=== PATIENT | male | born 1945 | race Caucasian/White ===

== ENCOUNTER 2016-12-09 14:59 | Inpatient (IN) | payer OTHER ==
[~2016-12-09] VITALS: Ht 182.9 cm; Wt 89.8 kg
--- NOTE | 2016-12-09 15:19 | ED NEURO DEFICIT/STROKE ---
History of Present Illness General Chief Complaint: Palpitations Stated Complaint: PALPITATIONS Source: patient, family Exam Limitations: no limitations Vital Signs & Intake/Output Vital Signs & Intake/Output Vital Signs Date Time Temp Pulse Resp B/P Pulse O2 O2 Flow FiO2 Ox Delivery Rate 12/09 1638 98.6 117 18 130/84 95 Nasal 2.0L Cannula 12/09 1550 110 124/74 12/09 1531 187 142/84 12/09 1527 99 Room Air 12/09 1526 142 142/91 96 Nasal 2.0L Cannula 12/09 1507 97.1 179 18 151/99 96 Room Air Allergies Coded Allergies: No Known Allergies (12/09/16) Reconcile Medications No Known Home Medications Triage Note: 71 Y/O MALE SENT FROM DR LOZANO'S OFFICE FOR EVAL OF RAPID HEARTBEAT AND ? CVA. PER PT, HE WENT TO HIS EYE DOCTOR DUE TO INTERMITTENT L EYE VISUAL CHANGES, "IT CANT FOCUS" (SINCE THIS AM) - WAS SENT TO DR LOZANO AND THEN SENT TO ED. PT DENIES PAIN. DENIES FEELING HEART RACING THOUGH NOTED TO BE 140'S-180'S. EKG COMPLETED. PT TAKEN TO ROOM 9. DENIES C/P, DENIES SOB; DENIES HX OF SAME Triage Nurses Notes Reviewed? yes HPI: Patient states that last night he saw flashes on the left side of his vision in his left eye but they only happened once or twice NEG that think anything of it so he went to bed. This morning he woke up and thought everything was fine and he began driving. While driving he noticed that he could not see out of the left side of his left high. Patient states when he turned his head to the left he was able to see him the left side but he could not see in the left periphery out of the left eye. Patient went to see his eye doctor who dilated him and could not find any abnormalities except the visual field loss in the left periphery of the left eye. Patient has not seen a primary care physician in approximately 6 years so he was sent to Dr. Lozano. Upon presentation to her office his vision has started to return and she cannot find anything on neurological exam however she found him to be tachycardic with an irregular heartbeat. Patient was sent to the emergency department for evaluation. Patient denies any palpitations. There's no shortness of breath or dyspnea on exertion. There is no orthopnea. Patient states he slept on one pillow last night and slept normally. Patient denies any lightheadedness. There is no headache. Past History Travel History Traveled to [place] past 21 day No Medical History Any Pertinent Medical History? 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 No Review of Systems Review of Systems Constitutional: Reports: no symptoms. EENTM: Reports: see HPI, visual changes. Respiratory: Reports: no symptoms. Cardiovascular: Reports: no symptoms. GI: Reports: no symptoms. Genitourinary: Reports: no symptoms. Musculoskeletal: Reports: no symptoms. Skin: Reports: no symptoms. Neurological/Psychological: Reports: no symptoms. Hematologic/Endocrine: Reports: no symptoms. Immunologic/Allergic: Reports: no symptoms. All Other Systems: Reviewed and Negative Physical Exam Physical Exam General Appearance: well developed/nourished, alert, awake, anxious, mild distress Head: atraumatic, normal appearance Eyes: Bilateral: PERRL, EOMI. Ears, Nose, Throat: normal ENT inspection, moist mucous membrane, hearing grossly normal Neck: normal inspection, supple, full range of motion, NO BRUIT HEARD Respiratory: normal breath sounds, chest non-tender, no respiratory distress, lungs clear Cardiovascular: normal peripheral pulses, tachycardia, irregularly irregular Gastrointestinal: normal bowel sounds, soft, non-tender, no organomegaly Back: normal inspection, normal range of motion Extremities: normal range of motion Psychiatric: awake, alert, oriented x 3 Cranial Nerves: normal hearing, normal speech, PERRL Coordination/Gait: normal finger to nose, normal gait Motor/Sensory: no motor/sensory deficits, motor deficit Skin: intact, normal color, warm/dry Lymphatic: no anterior cervical ramone Core Measures CVA/TIA Diagnosis: Yes NIH Stroke Scale: Total 1 Date Last Known Well: 12/08/16 Time Last Known Well: 2099 Symptom Start Date: 12/08/16 Symptom Start Time: 2100 Reason tPA not ordered+ Medical Contraindication Severe Sepsis Present: No Septic Shock Present: No Bedside Dysphagia Screen Bedside Swallow Eval Done: Yes Result of Evaluation: Pass Progress Differential Diagnosis: stroke, vertebrobasilar insuff., NEW ONSET AFIB Plan of Care: Orders Procedure Date/time Status Heart Healthy Diet 12/10 B Active Patient Data 12/09 1717 Active Admit to inpatient 12/09 1712 Active Add-on Test (ER Only) 12/09 1547 Active THYROID STIMULATING HORMONE 12/09 1509 Active TROPONIN LEVEL 12/09 1509 Active PARTIAL THROMBOPLASTIN TIME 12/09 1509 Complete PROTHROMBIN TIME 12/09 1509 Complete COMPREHENSIVE METABOLIC PANEL 12/09 1509 Active CBC WITHOUT DIFFERENTIAL 12/09 1509 Complete 1 HOUR GLUCOSE TOLERANCE TEST 12/09 1509 Active EKG 12/09 1501 Active Current Medications Sig/Magalys Start time Last Medication Dose Stop Time Status Admin Aspirin 325 MG ONCE ONE 12/09 1730 UNVr (Aspirin) 12/09 1731 Diltiazem HCl 125 MG Q12H 12/09 1715 UNVr (Cardizem DRIP) Dextrose/Water 100 ML (D5W) Laboratory Tests 12/09/16 1553: Anion Gap 13, Estimated GFR > 60, BUN/Creatinine Ratio 18.2, Glucose 104 H, Glucose 1 Hour 104, Calcium 9.5, Total Bilirubin 0.7, AST 27, ALT 39, Alkaline Phosphatase 90, Troponin I 0.03, Total Protein 7.3, Albumin 4.0, Globulin 3.3, Albumin/Globulin Ratio 1.2, TSH Pending, PT 12.2, INR 1.16, APTT 32, CBC w Diff NO MAN DIFF REQ, RBC 5.39, MCV 92.2, MCH 30.4, RDW 14.7 H, MPV 7.8, Gran % 83.8 H, Lymphocytes % 13.1 L, Monocytes % 2.8, Eosinophils % 0.2, Basophils % 0.1, Absolute Granulocytes 10.5 H, Absolute Lymphocytes 1.6, Absolute Monocytes 0.3, Absolute Eosinophils 0, Absolute Basophils 0, PUBS MCHC 33.0 Diagnostic Imaging: Viewed by Me: Radiology Read, CT Scan. Discussed w/RAD: Radiology Read, CT Scan. CXR Impression: PATIENT: SUSAN RICH PRESENT AGE: 71 PATIENT ACCOUNT NO: [id number] : 45 LOCATION: [facility] ORDERING PHYSICIAN: TABITHA BEAULIEU MD SERVICE DATE: 12/09/16 EXAM TYPE: RAD - XRY- PORTABLE CHEST XRAY EXAMINATION: XR PORTABLE CHEST CLINICAL INFORMATION: Chest pain COMPARISON: None TECHNIQUE: Portable AP view of the chest was obtained. FINDINGS: Lungs are symmetrically expanded and clear. Cardiac silhouette is top normal in size. No cephalization of pulmonary venous flow, interstitial edema, focal consolidation or pleural effusion. Aortic arch is slightly uncoiled. Bones subjectively appear diffusely osteopenic. 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 IMPRESSION: No acute cardiopulmonary pathology. DICTATED BY: LORI FERRARI MD DATE/TIME DICTATED:12/09/161554 REGISTERED PHLEBOTOMIST PART TIME:STEFFANY DATE/TIME TRANSCRIBED:12/09/161554 CONFIDENTIAL, DO NOT COPY WITHOUT APPROPRIATE AUTHORIZATION. <Electronically signed in Other Vendor System> SIGNED BY: LORI FERRARI MD 12/09/16 1600 Initial ED EKG: AFIB (WITH RVR AND RATE RELATED DUFF), AFIB WITH RVR AND RATE RELATED ST CHANGES, NO OLD TO COMPARE Prior EKG: changed (NO OLD TO COMPARE) Rhythm Strip: atrial fibrillation Comments: D/W DR. TILLMAN, HE WILL SEE PATIENT IN CONSULT ONCE ADMITTED. Discussed with Dr. Sebastian, hold off on anticoagulation for now. Okay to give aspirin. Departure Departure Disposition: STILL A PATIENT Condition: Stable Clinical Impression Primary Impression: CVA (cerebral vascular accident) Secondary Impressions: New onset a-fib Departure Forms: Customer Survey General Discharge Information Prescriptions: Current Visit Scripts No Known Home Medications Admission Note Spoke With: HALEY PARNELL,CECILIA Documentation of Exam: Documentation of any treatments & extenuating circumstances including Concerns Regarding Discharge (functional status, medication knowledge or non-compliance, living conditions, etc.) that warrant an admission rather than observation: [ Telemetry monitoring, Kalie chen, cardiology consultation, neurology consultation] Critical Care Note Critical Care Note Critical Care Time: mins: (45 MIN)
--- NOTE | 2016-12-09 16:00 | RADIOLOGY REPORT ---
EXAMINATION: XR PORTABLE CHEST CLINICAL INFORMATION: Chest pain COMPARISON: None TECHNIQUE: Portable AP view of the chest was obtained. FINDINGS: Lungs are symmetrically expanded and clear. Cardiac silhouette is top normal in size. No cephalization of pulmonary venous flow, interstitial edema, focal consolidation or pleural effusion. Aortic arch is slightly uncoiled. Bones subjectively appear diffusely osteopenic. 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 IMPRESSION: No acute cardiopulmonary pathology.
[2016-12-09 16:18] LABS: ABSOLUTE BASOPHIL COUNT 0 /CUMM (0.0-0.2); ABSOLUTE EOSINOPHIL COUNT 0 /CUMM (0.0-0.7); ABSOLUTE GRANULOCYTE CT 10.5 /CUMM (1.4-6.5); ABSOLUTE LYMPH COUNT 1.6 /CUMM (1.2-3.4); ABSOLUTE MONOCYTE COUNT 0.3 /CUMM (0.10-0.60); BASOPHIL % 0.1 % (0.0-2.0); EOSINOPHIL % 0.2 % (0-5); GRANULOCYTE % 83.8 % (42.2-75.2); HEMATOCRIT 49.7 % (42-52); MEAN CORPUSCULAR HGB 30.4 PG (27.0-31.0); MEAN CORPUSCULAR VOLUME 92.2 FL (80.0-94.0); MEAN PLATELET VOLUME 7.8 FL (7.4-10.4); PLATELET COUNT 298 /CUMM (130-400); RBC DISTRIBUTION WIDTH 14.7 % (11.5-14.5); RED BLOOD CELL CT 5.39 /CUMM (4.70-6.10); WHITE BLOOD CELL COUNT 12.5 /CUMM (4.8-10.8)
[2016-12-09 16:21] LABS: PT 12.2 SEC (9.4-12.5); PTT 32 SEC (25-37)
--- NOTE | 2016-12-09 17:03 | CT SCAN REPORT ---
EXAMINATION: CT HEAD WITHOUT CONTRAST CLINICAL INFORMATION: Left-sided visual field defect. COMPARISON: None. TECHNIQUE: Contiguous axial imaging was performed from the skull base to vertex without intravenous administration of contrast. DLP: 600 mGy-cm FINDINGS: Noncontrast CT imaging of the brain is notable for a focal region of hypoattenuation within the right paramedian occipital lobe, suspicious for acute right PRINCIPAL SYSTEMS ARCHITECT territory infarction. Of note, there is mild effacement of the posterior horn of the right lateral ventricle, likely secondary to underlying edema within this region. The remaining ventricles are normal in size. A focal region of hypoattenuation is also visualized within the deep cortical white matter of the left parietal lobe. This latter region of hypoattenuation is nonspecific but could reflect age-indeterminate small vessel ischemia. There is no acute intracranial hemorrhage, mass or mass effect or abnormal extra-axial fluid collections. The density within the dural venous sinuses is within normal limits. The basilar cisterns are patent. No acute calvarial abnormality is identified. There is minimal opacification of a left anterior ethmoid air cell. The remaining imaged paranasal sinuses and mastoid air cells are well aerated. IMPRESSION: A focal region of hypoattenuation within the right paramedian occipital lobe, suspicious for acute right PRINCIPAL SYSTEMS ARCHITECT territory infarction. Mild effacement of the posterior horn of the right lateral ventricle, likely secondary to underlying cerebral edema. The remaining ventricles are normal in size, without hydrocephalus. This critical result was discussed with Dr. Chuckie Mancini at 4:53 PM on 12/09/2016 and it was ascertained that the content and urgency of the report was understood at the time of direct communication.
--- NOTE | 2016-12-09 17:49 | History & Physical ---
See Addendum ALEX CHIRINOS 12/09/16 1748: General Information and HPI MD Statement: I have seen and personally examined SUSAN RICH and documented this H&P. The patient is a 71 year old M who presented with a patient stated chief complaint of palpitations Source of Information: patient, family, old records Exam Limitations: no limitations History of Present Illness: 71 year old gentleman with no past significant medical history, no follow up with a PCP since 7-8 years comes to ED for evaluation of visual disturbances. Reports he has some intermittent "flashes" last night. This morning around 9am while he was driving he experienced loss of left lateral aspect of his visual field in left eye. This lasted for a few seconds and he continued to drive home. He visited his eye doctor who told him to go to a doctor as he might have had a TIA based on his eye findings. Denied chest discomfort, palpitations, shortness of breath, orthopnea, paroxysmal nocturnal dyspnea, dry cough, lower extremity edema, syncope, near syncope, lightheadedness, dizziness, double vision, headaches, tingling, numbness, weakness. Allergies/Medications Allergies: Coded Allergies: No Known Allergies (12/09/16) Home Med list Aspirin (Ecotrin*) 81 MG TABLET. 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 Home Who Do You Live With? spouse ETOH Use: occasional use (RARELY AND NOT RECENTLY) Illicit Drug Use: denies illicit drug use Functional Ability ADLs Independent: dressing, eating, toileting, bathing. Ambulation: independent IADLs Independent: shopping, housework, finances, food prep, telephone, transportation , medication admin. Review of Systems Review of Systems Constitutional: Denies: chills, diaphoresis, fever, malaise, weakness, unexplained weight loss. Cardiovascular: Denies: chest pain, edema, orthopena, palpitations, peripheral edema, syncope. Respiratory: Denies: cough, hemoptysis, orthopnea, short of breath, sputum production, stridor, wheezing. GI: Denies: abdominal pain, bloating, constipation, diarrhea, distention, bowel incontinence, melena, nausea, bloody stool, changes in stool, vomiting, steatorrhea. Genitourinary: Denies: discharge, dysuria, frequency, hematuria, hesitation, nocturia, pain, urgency. Exam & Diagnostic Data Last 24 Hrs of Vital Signs/I&O Vital Signs Date Time Temp Pulse Resp B/P Pulse O2 O2 Flow FiO2 Ox Delivery Rate 12/09 1904 108 12 134/84 100 Nasal 2.0L Cannula 12/09 1743 97.1 113 20 134/78 96 Nasal 2.0L Cannula 12/09 1736 124 121/74 12/09 1638 98.6 117 18 130/84 95 Nasal 2.0L Cannula 12/09 1550 110 124/74 12/09 1531 187 142/84 12/09 1527 99 Room Air 12/09 1526 142 142/91 96 Nasal 2.0L Cannula 12/09 1507 97.1 179 18 151/99 96 Room Air Intake & Output 12/09 1600 12/09 0800 12/09 0000 Intake Total 1000 Output Total Balance 1000 Intake, IV 1000 Patient 185 lb Weight Physical Exam General Appearance Alert, Oriented X3, Cooperative, No Acute Distress HEENT Atraumatic, PERRLA (dilated), EOMI, Mucous Membr. moist/pink Neck Supple, No JVD, +2 Carotid Pulse wo Bruit Lymphatic Cervical nl Cardiovascular Normal S1, Normal S2, irregularly regular Lungs Clear to Auscultation, Normal Air Movement Abdomen Normal Bowel Sounds, Soft, No Tenderness Neurological Normal Speech, Normal Tone, Sensation Intact, Cranial Nerves 3-12 NL, impaired confrontation in left lower quadrant Extremities No Edema Diagnostic Data EKG Results Atrial fibrillation, heart rate 186, Q waves in lead 2 and 3 CXR Results SERVICE DATE: 12/09/16-1517 EXAM TYPE: RAD - XRY-PORTABLE CHEST XRAY EXAMINATION: XR PORTABLE CHEST FINDINGS: Lungs are symmetrically expanded and clear. Cardiac silhouette is top normal in size. No cephalization of pulmonary venous flow, interstitial edema, focal consolidation or pleural effusion. Aortic arch is slightly uncoiled. Bones subjectively appear diffusely osteopenic. 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 IMPRESSION: No acute cardiopulmonary pathology. SERVICE DATE: 12/09/16 EXAM TYPE: CAT - CT HEAD WO IV CONTRAST FINDINGS: Noncontrast CT imaging of the brain is notable for a focal region of hypoattenuation within the right paramedian occipital lobe, suspicious for acute right TIMBER DEADENER territory infarction. Of note, there is mild effacement of the posterior horn of the right lateral ventricle, likely secondary to underlying edema within this region. The remaining ventricles are normal in size. A focal region of hypoattenuation is also visualized within the deep cortical white matter of the left parietal lobe. This latter region of hypoattenuation is nonspecific but could reflect age-indeterminate small vessel ischemia. There is no acute intracranial hemorrhage, mass or mass effect or abnormal extra-axial fluid collections. The density within the dural venous sinuses is within normal limits. The basilar cisterns are patent. No acute calvarial abnormality is identified. There is minimal opacification of a left anterior ethmoid air cell. The remaining imaged paranasal sinuses and mastoid air cells are well aerated. IMPRESSION: A focal region of hypoattenuation within the right paramedian occipital lobe, suspicious for acute right TIMBER DEADENER territory infarction. Mild effacement of the posterior horn of the right lateral ventricle, likely secondary to underlying cerebral edema. The remaining ventricles are normal in size, without hydrocephalus. Assessment/Plan Assessment: 71 year old gentleman with no past significant medical history, no follow up with a PCP since 7-8 years comes to ED for evaluation of visual disturbances. Found to be in rapid afib in ED, CT head showed acute right TIMBER DEADENER territory infarction. Mild effacement of the posterior horn of the right lateral ventricle, likely secondary to underlying cerebral edema. Will admit to tele floor for continuous cardiac monitoring: problem list: new onset afib TIMBER DEADENER infarct plan: based on his neurological finding of left lower quadranopsia, most likely TIMBER DEADENER infarct involving lateral geniculate nucleus secondary to underlying afib. on IV cardiazem, will start aspirin and plavix f/up echo, carotid doppler will hold of Anticoagulation for at 24 hrs in case of hemorrhagic transformation despite Has-bled score of 3, those with afib are at higher risk for recurrent TIMBER DEADENER stroke. cardiololgy and neurology aware of pt. passed bedside swallow eval dvt prophylaxis with sc hep full code. As Ranked By This Provider Problem List: 1. CVA (cerebral vascular accident) 2. New onset a-fib Core Measures/Miscellaneous Acute Coronary Syndrome ACS Diagnosis: No Cerebrovascular Accident CVA/TIA Diagnosis: Yes NIH Stroke Scale: Total 1 Date Last Known Well: 12/08/16 Time Last Known Well: 2099 Neurological S/S of CVA: Acute Confusion (peripheral vision defect) Symptom Start Date: 12/08/16 Symptom Start Time: 2099 Reason tPA not ordered Medical Contraindication Bedside Swallow Eval Done: Yes Result of Evaluation: Pass Days in Hospital: na Antithrombotic: Yes AFIB: Atrial Fibrillation Aflutter: No Anticoagulant: No No Anticoag d/t: Medical Contraindication Evidence of Atherosclerosis: No LDL Assessed Within 24 Hours: Yes Currently on Statin: Yes Rehab Needs Assessed: Medical Eval for Rehab PT Consult Ordered: Yes Congestive Heart Failure CHF Diagnosis: No Venous Thromboembolism VTE Risk Factors: Age > 40 VTE Prophylaxis Ordered Inpt: Pharm- Heparin No Mech VTE prophylaxis d/t: No contraindications No VTE Pharm Prophylaxis d/t: No contraindications VTE Diagnosis: No VTE Type: NONE VTE Confirmed by (Test): NONE Severe Sepsis Severe Sepsis Present: No Septic Shock Septic Shock Present: No Miscellaneous Documentation Attending Case Discussed With: HALEY PARNELL,CECILIA Primary Care Physician: SHI LOZANO MD Patient sees these Specialists none Level of Patient Care: Telemetry DANDRE ELLER 12/09/16 1800: Resident Review Statement Resident Statement: examined this patient, discussed with employee communications intern, agreed with employee communications intern, discussed with family, reviewed EMR data (avail), reviewed images Other Findings: This is a 71-year-old gentleman with remote history of tobacco dependence was sent to the ED from Dr. Lozano's office for further evaluation of his visual field defect and atrial fibrillation with RVR. Patient has not seen a physician or done any medical workup for many years. He takes baby aspirin at home. He denies any history of cardiac disease, stroke, cancer, arrhythmia, cardiomyopathy or any medical problems. 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 He continued to drive and saw his deer farmer who referred him to Dr. Lozano and then he was sent to the ED from her office. Patient denies experiencing any loss of consciousness, near syncope, slurred speech, facial droop, shortness of breath, palpitation, chest pain, abdominal pain, urinary symptoms. On admission, he is tachycardic, vital signs otherwise stable, adequate saturation on 2 L nasal cannula oxygen. Physical exam: AAO 3, NAD. HEENT: NCAT, EOMI, PERRLA, visual field limited in left eye. Neck: Supple, no JVD, no carotid bruit. Lungs: CTA BL. CV: S1-S2 auscultated, no murmur, tachycardic. Abdomen: Normal bowel sounds, Soft, nondistended, nontender. Extremities, no edema, pulses normal and symmetrical. The patient passed bedside swallow evaluation test. Available labs and imaging/diagnostic data were reviewed. Head CT showed acute right TIMBER DEADENER territory infarction and mild effacement of the posterior horn of the right lateral ventricle, likely secondary to underlying cerebral edema. EKG showed A. fib, rate 179, QTC 484. Problem list #1 Acute CVA #2 A. fib with RVR Plan * Telemetry * Vitals per protocol * Rule out ACS with trending troponin and EKGs * Will check TSH, free T4, hemoglobin A1c, lipid profile * Will start the patient on statin, Plavix * Will maintain the patient on aspirin * Doppler carotid ultrasound, echocardiogram * Consider head MRI * Cardiology and neurology consulted will follow recommendations. * Formal swallow evaluation, PT/OT * Would not initiate systemic anticoagulation for at least 24 hours * DVT prophylaxis at all times * Cardiac diet * Patient is full code
--- NOTE | 2016-12-09 18:13 | Admission Certification ---
Admission Certification Certification Statement - As attending physician, I certify that at the time of - admission, based on clinical presentation, severity of - symptoms, need for further diagnostic testing and - therapeutic interventions, and risk of adverse outcomes - without in-hospital treatment, in my clinical assessment, - this patient requires an acute hospital stay for a minimum - of two nights or longer. I have also considered psychsocial - factors such as support system, advanced age, financial - issues, cognitive issues, and failed out-patient treatments, - past re-admission history, safety of patient, and lack of - compliance as applicable. Specific rationale supporting this admission is: New stroke and atrial fibrillation with rapid ventricle response rate
--- NOTE | 2016-12-09 18:22 | PN- Att Addend ---
Attending Addendum Attending Brief Note Patient seen and examined. Plan of care discussed with the medical team and the patient. Available lab work and radiology test reports were reviewed. Elderly made previous a healthy who presented with one-day history of flashing light in the left eye with visual field defect confirmed with the stack yield engineer. He noted that he was not able to see part of his car while driving. Patient was noted in ER to have A. fib with rapid ventricle response rate. Since his arrival he states his visual symptoms have improved. He denies any arm or leg weakness. Vital Signs Date Time Temp Pulse Resp B/P Pulse O2 O2 Flow FiO2 Ox Delivery Rate 12/09 1743 97.1 113 20 134/78 96 Nasal 2.0L Cannula 12/09 1736 124 121/74 12/09 1638 98.6 117 18 130/84 95 Nasal 2.0L Cannula 12/09 1550 110 124/74 12/09 1531 187 142/84 12/09 1527 99 Room Air 12/09 1526 142 142/91 96 Nasal 2.0L Cannula 12/09 1507 97.1 179 18 151/99 96 Room Air Intake & Output 12/09 1600 12/09 0800 12/09 0000 Intake Total 1000 Output Total Balance 1000 Intake, IV 1000 Patient 185 lb Weight Exam: General: Patient awake alert oriented without any distress CVS: S1 plus S2 without any murmur or gallops Chest: Few scattered crepitation without any wheeze. There is no respiratory distress. Abdomen: Soft nontender, bowel sound present, no guarding or rebound ADOLESCENT SPECIALIST: Awake alert oriented without any focal neuro deficit and follows command appropriately ; no double vision Extremities: No edema; no clubbing or cyanosis noted Laboratory Tests 12/09 12/09 12/09 1553 1509 1509 Chemistry Sodium (137 - 145 mmol/L) 141 Potassium (3.5 - 5.1 mmol/L) 4.9 Chloride (98 - 107 mmol/L) 105 Carbon Dioxide (22 - 30 mmol/L) 24 Anion Gap (5 - 16) 13 BUN (9 - 20 mg/dL) 20 Creatinine (0.7 - 1.2 mg/dL) 1.1 Estimated GFR (>60 ml/min) > 60 BUN/Creatinine Ratio (7 - 25 %) 18.2 Glucose (65 - 99 mg/dL) 104 H Fasting Glucose Cancelled Glucose 1/2 Hour Cancelled Calcium (8.4 - 10.2 mg/dL) 9.5 Magnesium (1.6 - 2.3 mg/dL) Pending Total Bilirubin (0.2 - 1.3 mg/dL) 0.7 AST (17 - 59 U/L) 27 ALT (21 - 72 U/L) 39 Alkaline Phosphatase (< 127 U/L) 90 Troponin I (<0.11 ng/ml) 0.03 Total Protein (6.3 - 8.2 g/dL) 7.3 Albumin (3.5 - 5.0 g/dL) 4.0 Globulin (1.9 - 4.2 gm/dL) 3.3 Albumin/Globulin Ratio (1.1 - 2.2 %) 1.2 TSH (0.270 - 4.200 uIU/mL) 0.461 Free T4 (0.78 - 2.44 ng/dL) Pending Coagulation PT (9.4 - 12.5 SEC) 12.2 INR (0.90 - 1.17) 1.16 APTT (25 - 37 SEC) 32 Hematology CBC w Diff NO MAN DIFF REQ WBC (4.8 - 10.8 /CUMM) 12.5 H RBC (4.70 - 6.10 /CUMM) 5.39 Hgb (14.0 - 18.0 G/DL) 16.4 Hct (42 - 52 %) 49.7 MCV (80.0 - 94.0 FL) 92.2 MCH (27.0 - 31.0 PG) 30.4 RDW (11.5 - 14.5 %) 14.7 H Plt Count (130 - 400 /CUMM) 298 MPV (7.4 - 10.4 FL) 7.8 Gran % (42.2 - 75.2 %) 83.8 H Lymphocytes % (20.5 - 51.1 %) 13.1 L Monocytes % (1.7 - 9.3 %) 2.8 Eosinophils % (0 - 5 %) 0.2 Basophils % (0.0 - 2.0 %) 0.1 Absolute Granulocytes (1.4 - 6.5 /CUMM) 10.5 H Absolute Lymphocytes (1.2 - 3.4 /CUMM) 1.6 Absolute Monocytes (0.10 - 0.60 /CUMM) 0.3 Absolute Eosinophils (0.0 - 0.7 /CUMM) 0 Absolute Basophils (0.0 - 0.2 /CUMM) 0 PUBS MCHC (33.0 - 37.0 G/DL) 33.0 CT HEAD A focal region of hypoattenuation within the right paramedian occipital lobe, suspicious for acute right TECHNICAL TRAINING MANAGER territory infarction. Mild effacement of the posterior horn of the right lateral ventricle, likely secondary to underlying cerebral edema. The remaining ventricles are normal in size, without hydrocephalus. CXR No acute cardiopulmonary pathology. Assessment * Occipital stroke with visual symptoms * New onset rapid A. fib * Elevated WBC count of unclear etiology Plan * Patient is being started on Cardizem. Follow TSH level. * His CT of the head have shown right-sided occipital infarct. As per neurology we should wait 24 hours before we start heparin. * Patient home takes aspirin therefore will begin with the Plavix and aspirin combination. * We will obtain neurology consult. * wait at least 24 hrs before starting heparin * Patient seen by Dr. Villela. * We'll admit to telemetry. * start statins. * check carotid doppler * check echocardiogram * check trops times 3 Care plan discussed with patient and his .
[2016-12-09] MEDS ORDERED: ASPIRIN EC81 M1 PO (18:28)
--- NOTE | 2016-12-09 18:28 | Cons- Cardiology ---
General Information and HPI Consulting Request Date of Consult: 12/09/16 Requested By: Reid Mcgee Haq Reason for Consult: Neurologic deficit and "new onset" atrial fibrillation. Source of Information: patient, family Exam Limitations: no limitations History of Present Illness: Mr. Rome Ortega is a 71-year-old male with a long-standing history of remote tobacco use who has not seen a physician in many years and who presented with a left visual field deficit and was found to be in atrial fibrillation with a rapid ventricular response. Mr. Ortega states that he noticed some visual "flashes" last night prior to going to bed for a camera flash might be going off and actually looked out of his window to see if there was any reason for the visual sensation he was experiencing. There was none. This morning while on his way to get a cup of coffee, he noticed transient, fleeting episodes of visual loss to the lateral aspect of his left eye. He did not think that his right eye was affected. He denied any recent associated chest discomfort, palpitations, shortness of breath, orthopnea, paroxysmal nocturnal dyspnea, dry cough, lower extremity edema, syncope, near syncope, lightheadedness, dizziness, or claudication. He also denied any recent periods of immobilization, such as long automobile drives, flights, etc. He denies any history of coronary, valvular, dysrhythmic/conduction disease, or cardiomyopathy. He also denies any history of hypertension, dyslipidemia, diabetes mellitus, coronary artery disease or family history of coronary artery disease or atrial fibrillation, except for brother had atrial fibrillation post CT surgery for a bioprosthetic valve replacement in older age. He also denies any history of thyroid thyroid disease, pulmonary disease, obstructive sleep apnea, etc. Allergies/Medications Allergies: Coded Allergies: No Known Allergies (12/09/16) Home Med List: Aspirin (Ecotrin*) 81 MG TABLET. 1 TAB PO DAILY Heart (Reported) Review of Systems Review of Systems: A 14 point system review was obtained and was noncontributory, other than for the fact the patient wears glasses. Past History Travel History Traveled to [place] past 21 day No Medical History Neurological: NONE EENT: NONE Cardiovascular: NONE Respiratory: NONE Gastrointestinal: NONE Hepatic: NONE Renal: nephrolithiasis Musculoskeletal: NONE Psychiatric: NONE Endocrine: NONE Blood Disorders: NONE Cancer(s): NONE FAMILY PRESERVATION OFFICER/Reproductive: NONE Surgical History Surgical History: non-contributory Psychosocial History ETOH Use: occasional use (RARELY AND NOT RECENTLY) Illicit Drug Use: denies illicit drug use Exam & Diagnostic Data Vital Signs and I&O Vital Signs Date Time Temp Pulse Resp B/P Pulse O2 O2 Flow FiO2 Ox Delivery Rate 12/09 1743 97.1 113 20 134/78 96 Nasal 2.0L Cannula 12/09 1736 124 121/74 12/09 1638 98.6 117 18 130/84 95 Nasal 2.0L Cannula 12/09 1550 110 124/74 12/09 1531 187 142/84 12/09 1527 99 Room Air 12/09 1526 142 142/91 96 Nasal 2.0L Cannula 12/09 1507 97.1 179 18 151/99 96 Room Air Intake & Output 12/09 1600 12/09 0800 12/09 0000 12/08 1600 12/08 0800 12/08 0000 Intake Total 1000 Output Total Balance 1000 Intake, IV 1000 Patient 185 lb Weight Physical Exam: Well-developed, well-nourished elderly male in no acute distress with nasal oxygen in place. Vital signs: See above. HEENT: Normocephalic, atraumatic, EOMI, moist mucous membranes. Neck: No JVD, no bruits. Lungs: Clear to auscultation bilaterally. Heart: S1, S2 with no murmur, gallop, or rub appreciated. PMI fifth ICS at MCL. Abdomen: Soft, nontender, positive bowel sounds. Extremities: No edema. Pulses: Symmetrical and intact. Labs/Finesse Results: Laboratory Tests 12/09 12/09 12/09 1553 1553 1509 Chemistry Sodium (137 - 145 mmol/L) 141 Potassium (3.5 - 5.1 mmol/L) 4.9 Chloride (98 - 107 mmol/L) 105 Carbon Dioxide (22 - 30 mmol/L) 24 Anion Gap (5 - 16) 13 BUN (9 - 20 mg/dL) 20 Creatinine (0.7 - 1.2 mg/dL) 1.1 Estimated GFR (>60 ml/min) > 60 BUN/Creatinine Ratio (7 - 25 %) 18.2 Glucose (65 - 99 mg/dL) 104 H Glucose 1/2 Hour Cancelled Hemoglobin A1c Pending Calcium (8.4 - 10.2 mg/dL) 9.5 Magnesium (1.6 - 2.3 mg/dL) Pending Total Bilirubin (0.2 - 1.3 mg/dL) 0.7 AST (17 - 59 U/L) 27 ALT (21 - 72 U/L) 39 Alkaline Phosphatase (< 127 U/L) 90 Troponin I (<0.11 ng/ml) 0.03 Total Protein (6.3 - 8.2 g/dL) 7.3 Albumin (3.5 - 5.0 g/dL) 4.0 Globulin (1.9 - 4.2 gm/dL) 3.3 Albumin/Globulin Ratio (1.1 - 2.2 %) 1.2 Triglycerides (<150 mg/dL) Pending Cholesterol (< 200 MG/DL) Pending LDL Cholesterol, Calc (65 - 129 mg/dL) Pending HDL Cholesterol (40 - 60 mg/dL) Pending Cholesterol/HDL Ratio (0.00 - 4.88 %) Pending TSH (0.270 - 4.200 uIU/mL) 0.461 Free T4 (0.78 - 2.44 ng/dL) Pending Coagulation PT (9.4 - 12.5 SEC) 12.2 INR (0.90 - 1.17) 1.16 APTT (25 - 37 SEC) 32 Hematology CBC w Diff NO MAN DIFF REQ WBC (4.8 - 10.8 /CUMM) 12.5 H RBC (4.70 - 6.10 /CUMM) 5.39 Hgb (14.0 - 18.0 G/DL) 16.4 Hct (42 - 52 %) 49.7 MCV (80.0 - 94.0 FL) 92.2 MCH (27.0 - 31.0 PG) 30.4 RDW (11.5 - 14.5 %) 14.7 H Plt Count (130 - 400 /CUMM) 298 MPV (7.4 - 10.4 FL) 7.8 Gran % (42.2 - 75.2 %) 83.8 H Lymphocytes % (20.5 - 51.1 %) 13.1 L Monocytes % (1.7 - 9.3 %) 2.8 Eosinophils % (0 - 5 %) 0.2 Basophils % (0.0 - 2.0 %) 0.1 Absolute Granulocytes (1.4 - 6.5 /CUMM) 10.5 H Absolute Lymphocytes (1.2 - 3.4 /CUMM) 1.6 Absolute Monocytes (0.10 - 0.60 /CUMM) 0.3 Absolute Eosinophils (0.0 - 0.7 /CUMM) 0 Absolute Basophils (0.0 - 0.2 /CUMM) 0 PUBS MCHC (33.0 - 37.0 G/DL) 33.0 12/09 1509 Chemistry Fasting Glucose Cancelled Diagnostic Data EKG Results (12/09/2016) atrial fibrillation with a rapid ventricular response, 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 CXR Results (12/09/2016) no acute cardiopulmonary process. Other Results Head CT (12/09/2016) A focal region of hypoattenuation within the right paramedian occipital lobe, suspicious for acute right BROADCAST ENGINEER territory infarction. Mild effacement of the posterior horn of the right lateral ventricle, likely secondary to underlying cerebral edema. The remaining ventricles are normal in size, without hydrocephalus. Assessment/Plan Assessment/Plan Mr. Ortega is an elderly male who has not seen a physician in many years and who presented with a left visual field defect and was discovered to be in atrial fibrillation with a rapid ventricular response. He is in the process of receiving his third bolus of IV diltiazem 10 mg and will be placed on a diltiazem drip. He has a [id number] score of at least 3 with an unadjusted stroke rate of 3.2% per year (age 71 years and stroke/TIA), but also has evidence of a probable old inferior wall and possible old anterior wall myocardial infarction on his electrocardiogram which could increase his score to 4 and an unadjusted stroke rate of 4.8% per year, and therefore should be on long-term anticoagulation, especially since he is not aware of the fact that he is in atrial fibrillation. However, there is the potential for hemorrhagic transformation of his ischemic stroke if he were placed on anticoagulation at this time, so this will be held until neurology deems it appropriate to begin anticoagulation. Recommendations: * Telemetry admission, follow-up troponins, follow-up electrocardiograms. * Start IV diltiazem and when the ventricular response to his atrial fibrillation is well-controlled switch to oral diltiazem by the formula: Oral daily dosage in mg/day approximately equals [IV rate (mg/hr) x3 +3] x 10 i.e., an IV rate of 3 mg/hr would equal an oral daily dosage of 120 mg. * Schedule for an echocardiogram to assess his left ventricular function, valvular function, atrial size, estimated PA systolic pressure, etc. * Anticipate that he will be started on a full anticoagulation and would recommend one of the newer factor Xa inhibitors such as Eliquis (apixaban) or Xarelto (rivaroxaban). * Schedule for carotid ultrasound. * Consider brain MRI. * Check free T4, TSH, glycosylated hemoglobin A1c, magnesium level, lipid panel, etc. * DVT prophylaxis. Further recommendations will follow, Thank you. Consult Acknowledgment - Thank you for your consult request.
[2016-12-09 20:42] VITALS: BP 138/82
--- NOTE | 2016-12-09 21:10 | ULTRASOUND REPORT ---
EXAMINATION: US DUPLEX CAROTID AND VERTEBRAL CLINICAL INFORMATION: Additional changes. Right occipital lobe infarct on recent head CT. COMPARISON: None. TECHNIQUE: Real-time ultrasound and Doppler techniques (integrating B-mode 2D vascular images, Doppler spectral analysis and color flow Doppler imaging) were utilized to interrogate the extracranial carotid and vertebral arteries bilaterally. The degree of stenosis determined by criteria similar to NASCET. FINDINGS: RIGHT CAROTID SYSTEM: There is minimal echogenic plaque within the right common carotid artery, notably in the region of the carotid bulb. Peak systolic velocities and end diastolic velocities of the right vessels are as follows: Distal CCA: PSV 65 cm/s, EDV 10 cm/s Proximal ICA: PSV 79 cm/s, EDV 24 cm/s Mid ICA: 84 cm/s, EDV 28 cm/s Distal ICA: 95 cm/s, EDV 30 cm/s ECA: PSV 92 cm/s, EDV 19 cm/s Right vertebral artery: Antegrade flow is identified within the right vertebral artery. LEFT CAROTID SYSTEM: Minimal echogenic plaque within the left common carotid artery. Peak systolic velocities and end diastolic velocities of the left vessels are as follows: Distal CCA: PSV 79 cm/s, EDV 16 cm/s Proximal ICA: PSV 69 cm/s, EDV 17 cm/s Mid ICA: 99 cm/s, EDV 35 cm/s Distal ICA: 123 cm/s, EDV 35 cm/s ECA: PSV 120 cm/s, EDV 13 cm/s Left vertebral artery: Antegrade flow within the left vertebral artery. IMPRESSION: No hemodynamically significant stenosis of the bilateral internal carotid arteries. Any stenosis is less than 50%.
[2016-12-10 08:31] VITALS: BP 136/90
--- NOTE | 2016-12-10 09:16 | PN- Housestaff ---
See Addendum Subjective Follow-up For: GOODWILL REPRESENTATIVE infarct New onset A. fib Tele-Events Since Last Visit: Atrial fibrillation, 85 -100s, 3 beat V. tach Subjective: Seen and examined patient, offers no complaints feels well. States that his vision is actually improving. Denies any worsening weakness of his upper and lower extremities Review of Systems Constitutional: Denies: chills, diaphoresis, fever, malaise, weakness, unexplained weight loss. Cardiovascular: Denies: chest pain, edema, orthopena, palpitations, peripheral edema, syncope. Respiratory: Denies: cough, hemoptysis, orthopnea, short of breath, sputum production, stridor, wheezing. Objective Last 24 Hrs of Vital Signs/I&O Vital Signs Date Time Temp Pulse Resp B/P Pulse O2 O2 Flow FiO2 Ox Delivery Rate 12/10 0831 98.2 86 20 136/90 93 Room Air 12/09 2042 98.0 103 20 138/82 96 Room Air 12/09 1904 108 12 134/84 100 Nasal 2.0L Cannula 12/09 1743 97.1 113 20 134/78 96 Nasal 2.0L Cannula 12/09 1736 124 121/74 12/09 1638 98.6 117 18 130/84 95 Nasal 2.0L Cannula 12/09 1550 110 124/74 12/09 1531 187 142/84 12/09 1527 99 Room Air 12/09 1526 142 142/91 96 Nasal 2.0L Cannula 12/09 1507 97.1 179 18 151/99 96 Room Air Intake & Output 12/10 1600 12/10 0800 12/10 0000 Intake Total 270 250 Output Total Balance 270 250 Intake, IV 30 10 Intake, Oral 240 240 Number 1 Bowel Movements Patient 198 lb Weight Physical Exam General Appearance: Alert, Oriented X3, Cooperative, No Acute Distress HEENT: PERRLA, Mucous Membr. moist/pink Cardiovascular: Normal S1, Normal S2, irregularly irregular Lungs: Clear to Auscultation, Normal Air Movement Abdomen: Normal Bowel Sounds, Soft, No Tenderness Neurological: Normal Gait, Normal Speech, Strength at 5/5 X4 Ext, Normal Tone, Sensation Intact, Cranial Nerves 3-12 NL, confrontation test continues to have temporal visual field defect Extremities: No Edema Current Medications: Current Medications Sig/Magalys Start time Last Medication Dose Route Stop Time Status Admin Aspirin 325 MG ONCE ONE 12/09 1730 DC 12/09 PO 12/09 1731 1726 Aspirin 0 .STK-MED ONE 12/09 1717 DC PO Atorvastatin Calcium 80 MG 1700 12/10 1700 AC PO Atorvastatin Calcium 40 MG 17012/09 1830 DC 12/09 PO 2210 Clopidogrel Bisulfate 75 MG DAILY 12/09 1854 AC 12/09 PO 2210 Diltiazem HCl 0 .STK-MED ONE 12/09 1846 DC .ROUTE Diltiazem HCl 0 .STK-MED ONE 12/09 1717 DC .ROUTE Diltiazem HCl 10 MG ONCE ONE 12/09 1715 DC 12/09 IV PUSH 12/09 171 1736 Diltiazem HCl 125 MG Q12H 12/09 171 AC 12/09 Dextrose/Water 100 ML IV 1904 Diltiazem HCl 10 MG ONCE ONE 12/09 1545 DC 12/09 IV PUSH 12/09 1546 1550 Diltiazem HCl 10 MG ONCE ONE 12/09 1530 DC 12/09 IV PUSH 12/09 1531 1531 Diltiazem HCl 0 .STK-MED ONE 12/09 1517 DC .ROUTE Heparin Sodium 5,000 UNIT Q8 12/09 2199 CAN (Porcine) SC Heparin Sodium 5,000 UNIT Q8 12/09 2199 AC 12/10 (Porcine) SC 0445 Last 24 Hrs of Lab/Finesse Results Last 24 Hrs of Labs/Mics: Laboratory Tests 12/10/16 0630: Urine Opiates Screen < 100.00, Methadone Screen < 40, Barbiturate Screen < 60, Ur Phencyclidine Scrn < 6.00, Amphetamines Screen < 100, U Benzodiazepines Scrn < 85, Urine Cocaine Screen < 50, Urine Cannabis Screen < 5.00 12/10/16 0430: Potassium Pending, Magnesium Pending, Troponin I 0.03 12/09/16 2215: Troponin I 0.03 12/09/16 1553: Hemoglobin A1c Pending 12/09/16 1553: Anion Gap 13, Estimated GFR > 60, BUN/Creatinine Ratio 18.2, Glucose 104 H, Calcium 9.5, Magnesium 1.7, Total Bilirubin 0.7, AST 27, ALT 39, Alkaline Phosphatase 90, Troponin I 0.03, Total Protein 7.3, Albumin 4.0, Globulin 3.3, Albumin/Globulin Ratio 1.2, Triglycerides 91, Cholesterol 241 H, LDL Cholesterol, Calc 170 H, HDL Cholesterol 53, Cholesterol/HDL Ratio 5 H, TSH 0.461, Free T4 1.37, PT 12.2, INR 1.16, APTT 32, CBC w Diff NO MAN DIFF REQ, RBC 5.39, MCV 92.2, MCH 30.4, RDW 14.7 H, MPV 7.8, Gran % 83.8 H, Lymphocytes % 13.1 L, Monocytes % 2.8, Eosinophils % 0.2, Basophils % 0.1, Absolute Granulocytes 10.5 H, Absolute Lymphocytes 1.6, Absolute Monocytes 0.3, Absolute Eosinophils 0, Absolute Basophils 0, PUBS MCHC 33.0 12/09/16 1509: Glucose 1/2 Hour Cancelled 12/09/16 1509: Fasting Glucose Cancelled Assessment/Plan Assessment: 71 year old gentleman with no past significant medical history, no follow up with a PCP since 7-8 years comes to ED for evaluation of visual disturbances. Found to be in rapid afib in ED, CT head showed acute right GOODWILL REPRESENTATIVE territory infarction. Mild effacement of the posterior horn of the right lateral ventricle, likely secondary to underlying cerebral edema. Continues to have visual field defect. 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 plan: on IV cardiazem, heart rate between 70s-100s. will transition to PO cardiazem 30mg pq6 and titrate IV cardiazem off , continue aspirin and plavix, anticoagulation 7-10 days echo pending, carotid doppler shows no hemodynamically significant stenosis. cardiololgy and neurology aware of pt. heart healthy diet dvt prophylaxis with sc hep full code. Problem List: 1. New onset a-fib 2. CVA (cerebral vascular accident) Pain Ratin Pain Location: Not applicable Pain Goal: Pain 4 or less Pain Plan: BEP Tomorrow's Labs & Rationales: NONE REQUIRED
--- NOTE | 2016-12-10 12:49 | Cons- Neurology ---
General Information and HPI Consulting Request Date of Consult: 12/10/16 Requested By: REDD CEJA MD History of Present Illness: 71-year-old white male presented on the evening prior to admission with an unusual flash of light in his left visual field. He went to bed however upon arising the next morning realized that he had some difficulty seeing to his left. He went to see his eye doctor but was ultimately referred to the [facility] emergency room due to fear of stroke. He was found to be in atrial fibrillation with a rapid ventricular response. CAT scan of the brain showed a subacute right occipital ischemic infarction. The patient denied any associated headache. He had no known history of stroke. Allergies/Medications Allergies: Coded Allergies: No Known Allergies (12/09/16) Home Med List: Aspirin (Ecotrin*) 81 MG TABLET. 1 TAB PO DAILY Heart (Reported) Review of Systems Review of Systems: Notable for difficulty seeing to his left. There is no associated headache, fever, chills, rash, diplopia, dysarthria, dysphagia, chest pain, shortness of breath, vomiting, vertigo, gait ataxia, joint inflammation or history of abnormal bleeding. 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 Home Who Do You Live With? spouse Services at Home: None Smoking Status: Former Smoker ETOH Use: occasional use (RARELY AND NOT RECENTLY) Illicit Drug Use: denies illicit drug use Functional Ability ADLs Independent: dressing, eating, toileting, bathing. Ambulation: independent IADLs Independent: shopping, housework, finances, food prep, telephone, transportation , medication admin. Exam & Diagnostic Data Vital Signs and I&O Vital Signs Date Time Temp Pulse Resp B/P Pulse O2 O2 Flow FiO2 Ox Delivery Rate 12/10 1115 Room Air Room Air 12/10 0831 98.2 86 20 136/90 93 Room Air 12/10 0800 Room Air 12/09 204 98.0 103 20 138/82 96 Room Air 12/09 1904 108 12 134/84 100 Nasal 2.0L Cannula 12/09 1743 97.1 113 20 134/78 96 Nasal 2.0L Cannula 12/09 1736 124 121/74 12/09 1638 98.6 117 18 130/84 95 Nasal 2.0L Cannula 12/09 1550 110 124/74 12/09 1531 187 142/84 12/09 1527 99 Room Air 12/09 1526 142 142/91 96 Nasal 2.0L Cannula 12/09 1507 97.1 179 18 151/99 96 Room Air Intake & Output 12/10 1600 12/10 0800 12/10 0000 Intake Total 270 250 Output Total Balance 270 250 Intake, IV 30 10 Intake, Oral 240 240 Number 1 Bowel Movements Patient 198 lb Weight Pleasant elderly gentleman in no acute distress. The head was normocephalic and atraumatic. Higher cortical function was grossly intact. Speech was fluent. Pupils were equal and reactive. Extraocular movements were full. There was a left homonymous hemianopsia to finger confrontation. Facial strength and sensation was intact. Hearing was normal. Tongue was midline. The motor examination showed no drift of the upper extremities. There was no focal or lateralizing weakness. Deep tendon reflexes were symmetric. Plantar responses were flexor. Fine finger movements and rapid alternating movements were performed normally. Sensory examination was normal to double simultaneous stimulation for light touch. Gait was untested. Assessment/Plan Assessment: Patient presents with an acute left homonymous hemianopsia, consistent with his CT findings of a right occipital, ischemic stroke. In view of his newly discovered atrial fibrillation, this is likely of embolic origin. Recommendations: As noted by cardiology, treatment going forward should include full anticoagulation. However, there exists the possibility of hemorrhagic transformation of the stroke when anticoagulation is introduced in the acute setting. Typically, one would wish to wait 2 weeks prior to beginning warfarin or a NOAC. However, as his stroke is relatively minor and with a reasonable fear of recurrent embolization, I would favor beginning his anticoagulation somewhat sooner, 7-10 days following his ictus. In the interim, would continue him on dual antiplatelet therapy. Carotid ultrasound and echocardiogram have been appropriately ordered. We are cautiously optimistic that his vision may improve, however the degree and rapidity is unknown. I have discussed the above with the patient and his at the bedside. We will be happy to reevaluate him in the office setting several weeks down the road following discharge, or alternatively on a when necessary basis. Please feel free to call with any further questions. Consult Acknowledgment - Thank you for your consult request.
--- NOTE | 2016-12-10 14:03 | PN- Cardiology ---
Subjective Subjective: No complaints. Still has visual disturbances, but they have improved from the time of admission. Remains in atrial fibrillation on telemetry with ventricular response rates that are still at times too rapid. Objective Vital Signs and I&Os Vital Signs Date Time Temp Pulse Resp B/P Pulse O2 O2 Flow FiO2 Ox Delivery Rate 12/10 1115 Room Air Room Air 12/10 0831 98.2 86 20 136/90 93 Room Air 12/10 0800 Room Air 12/09 2042 98.0 103 20 138/82 96 Room Air 12/09 1904 108 12 134/84 100 Nasal 2.0L Cannula 12/09 1743 97.1 113 20 134/78 96 Nasal 2.0L Cannula 12/09 1736 124 121/74 12/09 1638 98.6 117 18 130/84 95 Nasal 2.0L Cannula 12/09 1550 110 124/74 12/09 1531 187 142/84 12/09 1527 99 Room Air 12/09 1526 142 142/91 96 Nasal 2.0L Cannula 12/09 1507 97.1 179 18 151/99 96 Room Air Intake & Output 12/10 1600 12/10 0800 12/10 0000 12/09 1600 12/09 0800 12/09 0000 Intake Total 209 016 5078 Output Total Balance 500 665 3732 Intake, IV 30 10 1000 Intake, Oral 240 240 Number 1 Bowel Movements Patient 198 lb 185 lb Weight Physical Exam: Well-developed, well-nourished elderly male in no acute distress. Vital signs: See above. Neck: No JVD, no bruits. Lungs: Clear to auscultation bilaterally. Abdomen: Soft, nontender, positive bowel sounds. Extremities: No edema. Current Medications: Current Medications Sig/Magalys Start time Last Medication Dose Route Stop Time Status Admin Aspirin 325 MG ONCE ONE 12/09 1730 DC 12/09 PO 12/09 1731 1726 Aspirin 0 .STK-MED ONE 12/09 1717 DC PO Atorvastatin Calcium 80 MG 1700 12/10 1700 AC PO Atorvastatin Calcium 40 MG 1700 12/09 1830 DC 12/09 PO 2210 Clopidogrel Bisulfate 75 MG DAILY 12/09 1854 AC 12/10 PO 1007 Diltiazem HCl 30 MG Q6 12/10 1345 UNVr PO Diltiazem HCl 125 MG Q24H 12/10 1015 AC Dextrose/Water 100 ML IV Diltiazem HCl 0 .STK-MED ONE 12/09 1846 DC .ROUTE Diltiazem HCl 0 .STK-MED ONE 12/09 1717 DC .ROUTE Diltiazem HCl 10 MG ONCE ONE 12/09 1715 DC 12/09 IV PUSH 12/09 171 1736 Diltiazem HCl 125 MG Q12H 12/09 1715 DC 12/09 Dextrose/Water 100 ML IV 1904 Diltiazem HCl 10 MG ONCE ONE 12/09 1545 DC 12/09 IV PUSH 12/09 1546 1550 Diltiazem HCl 10 MG ONCE ONE 12/09 1530 DC 12/09 IV PUSH 12/09 1531 1531 Diltiazem HCl 0 .STK-MED ONE 12/09 1517 DC .ROUTE Heparin Sodium 5,000 UNIT Q8 12/09 2200 CAN (Porcine) SC Heparin Sodium 5,000 UNIT Q8 12/09 2200 AC 12/10 (Porcine) SC 0445 Patient Medication 1 ED .STK-MED ONE 12/10 1140 DC Teaching ED 12/10 1141 Results Last 48 Hrs of Labs/Mics: Laboratory Tests 12/10/16 0630: Urine Opiates Screen < 100.00, Methadone Screen < 40, Barbiturate Screen < 60, Ur Phencyclidine Scrn < 6.00, Amphetamines Screen < 100, U Benzodiazepines Scrn < 85, Urine Cocaine Screen < 50, Urine Cannabis Screen < 5.00 12/10/16 0430: Magnesium 1.9, Troponin I 0.03 12/09/16 2215: Troponin I 0.03 12/09/16 1553: Hemoglobin A1c Pending 12/09/16 1553: Anion Gap 13, Estimated GFR > 60, BUN/Creatinine Ratio 18.2, Glucose 104 H, Calcium 9.5, Magnesium 1.7, Total Bilirubin 0.7, AST 27, ALT 39, Alkaline Phosphatase 90, Troponin I 0.03, Total Protein 7.3, Albumin 4.0, Globulin 3.3, Albumin/Globulin Ratio 1.2, Triglycerides 91, Cholesterol 241 H, LDL Cholesterol, Calc 170 H, HDL Cholesterol 53, Cholesterol/HDL Ratio 5 H, TSH 0.461, Free T4 1.37, PT 12.2, INR 1.16, APTT 32, CBC w Diff NO MAN DIFF REQ, RBC 5.39, MCV 92.2, MCH 30.4, RDW 14.7 H, MPV 7.8, Gran % 83.8 H, Lymphocytes % 13.1 L, Monocytes % 2.8, Eosinophils % 0.2, Basophils % 0.1, Absolute Granulocytes 10.5 H, Absolute Lymphocytes 1.6, Absolute Monocytes 0.3, Absolute Eosinophils 0, Absolute Basophils 0, PUBS MCHC 33.0 12/09/16 1509: Glucose 1/2 Hour Cancelled 12/09/16 1509: Fasting Glucose Cancelled Assessment/Plan Assessment/Plan Mr. Ortega is an elderly male who has not seen a physician in many years and who presented with a left visual field defect c/w left homonymous hemianopsia and was discovered to be in atrial fibrillation with a rapid ventricular response. He remains in atrial fibrillation with a ventricular response rate that has varied from 85-150 bpm on a diltiazem drip at rate 5 mg/hr so would recommend titrating this up further. 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 As there is the potential for hemorrhagic transformation of his ischemic stroke if he were placed on anticoagulation at this time, the timing of full anticoagulation was discussed with neurology who feel that this should be held off for 7-10 days and then started. In the meantime, dual antiplatelet therapy is recommended. Recommendations: * Continue on telemetry. * Review echocardiogram and carotid ultrasound. * Titrate up diltiazem drip and when the ventricular response to his atrial fibrillation is well-controlled switch to oral diltiazem by the formula: Oral daily dosage in mg/day approximately equals [IV rate (mg/hr) x3 +3] x 10 i.e., an IV rate of 3 mg/hr would equal an oral daily dosage of 120 mg. * Continue dual antiplatelet therapy (ASA, clopidogrel). * Anticipate that he will be started on a full anticoagulation in 7-10 days and would recommend one of the newer factor Xa inhibitors such as Eliquis (apixaban) or Xarelto (rivaroxaban). * Continue statin therapy. * Continue DVT prophylaxis. Continue telemetry? Yes
--- NOTE | 2016-12-10 15:45 | ECHOCARDIOGRAM REPORT ---
SUSAN RICH Age: 71 : 1945 Gender: M Exam Date: 12/09/2016 19:04 Exam Location: [facility] Ht (in): 72 Wt (lb): 198 BSA: 2.15 BP: 134 / 78 Ordering Physician: DIEGO ELLER, Referring Physician: Dustin Villela MD Technologist: Daniella Fatima PAULIE Room Number: ED#9 Indications: STROKE Rhythm: Atrial fibrillation Technical Quality: Technically difficult study FINDINGS Left Ventricle Normal size left ventricle. Borderline to mild concentric left ventricular hypertrophy. No obvious regional wall motion abnormalities. Normal left ventricular ejection fraction visually estimated at >65%. Right Ventricle Right ventricular dilatation. Right Atrium Mild right atrial size. Left Atrium Mild to moderate left atrial dilatation. Mitral Valve Mild to moderate mitral annular calcification. Mitral valve mildly thickened. Mild mitral regurgitation. Aortic Valve Mild aortic sclerosis. No aortic stenosis. Trace aortic regurgitation. Tricuspid Valve Structurally normal tricuspid valve. Trace tricuspid regurgitation. Right ventricular systolic pressure estimated at 31mmHg. Pulmonic Valve Pulmonic valve not well visualized. No pulmonic regurgitation. Pericardium No pericardial effusion. Great Vessels Normal size aortic root. Mildly dilated ascending aorta. Dilated inferior vena cava. CONCLUSIONS Normal size left ventricle. Borderline to mild concentric left ventricular hypertrophy. No obvious regional wall motion abnormalities. Normal left ventricular ejection fraction visually estimated at > 65%. Right ventricular dilatation. Mild right atrial size. Mild to moderate left atrial dilatation. Mild mitral regurgitation. Trace aortic regurgitation. Trace tricuspid regurgitation. Right ventricular systolic pressure estimated at 31mmHg. Mildly dilated ascending aorta. Dilated inferior vena cava. Dustin Villela M.D. (Electronically Signed) Final Date: 10 December 2016 15:44 MEASUREMENTS (Male / Female) Normal Values 2D ECHO LV Diastolic Diameter PLAX 3.9 cm 4.2 - 5.9 / 3.9 - 5.3 cm LV Systolic Diameter PLAX 2.2 cm 2.1 - 4.0 cm LV Fractional Shortening PLAX 43.6 % 25 - 46 % LV Ejection Fraction 2D Teich 75.4 % IVS Diastolic Thickness 1.0 cm LVPW Diastolic Thickness 1.2 cm LV Relative Wall Thickness 0.6 RV Internal Dim ED PLAX 3.4 cm 1.9 - 3.8 cm LVOT Diameter 1.9 cm Aortic Root Diameter 3.6 cm LA Systolic Diameter LX 4.9 cm 3.0 - 4.0 / 2.7 - 3.8 cm LA Volume 65.0 cm 18 - 58 / 22 - 52 cm Ascending Aorta Diameter 3.6 cm DOPPLER AV Peak Velocity 122.0 cm/s AV Peak Gradient 6.0 mmHg AV Mean Velocity 80.1 cm/s AV Mean Gradient 3.0 mmHg AV Velocity Time Integral 18.6 cm LVOT Peak Velocity 85.2 cm/s LVOT Peak Gradient 2.9 mmHg LVOT Mean Velocity 58.7 cm/s LVOT Mean Gradient 2.0 mmHg LVOT Velocity Time Integral 14.1 cm LVOT Stroke Volume 40.0 cm AV Area Cont Eq vti 2.1 cm AV Area Cont Eq pk 2.0 cm MV Peak Velocity 115.0 cm/s MV Peak Gradient 5.3 mmHg MV Mean Velocity 54.0 cm/s MV Mean Gradient 2.0 mmHg Mitral E Point Velocity 71.5 cm/s Mitral A Point Velocity 86.9 cm/s Mitral E to A Ratio 0.8 MV PHT Velocity 116.0 cm/s MV Deceleration Mercer 495.0 cm/s MV Pressure Half Time 70.3 ms MV Area PHT 3.1 cm MV Deceleration Time 235.0 ms TR Peak Velocity 256.0 cm/s TR Peak Gradient 26.2 mmHg Right Atrial Pressure 5.0 mmHg Pulmonary Artery Systolic Pressu 31.2 mmHg Right Ventricular Systolic Press 31.2 mmHg PV Peak Velocity 82.6 cm/s PV Peak Gradient 2.7 mmHg PV Mean Velocity 64.8 cm/s PV Mean Gradient 2.0 mmHg PV Velocity Time Integral 16.3 cm LV E' Lateral Velocity 7.4 cm/s Mitral E to LV E' Lateral Ratio 9.7 LV E' Septal Velocity 6.8 cm/s Mitral E to LV E' Septal Ratio 10.5
[2016-12-10 16:04] VITALS: BP 154/92
[2016-12-10 23:33] VITALS: BP 142/98
[2016-12-11 08:38] VITALS: BP 143/84
--- NOTE | 2016-12-11 08:42 | PN- Housestaff ---
ALEX CHIRINOS 12/11/16 0841: Subjective Follow-up For: FINANCIAL PLANNING ASSISTANT infarct New onset A. fib Tele-Events Since Last Visit: afib, 86-104 had episode of tachycardia to 130s at 5am Subjective: seen and examined patient, offer no complaints, feels well. Denies chest pain, shortness of breath or palpitations. Review of Systems Constitutional: Denies: chills, diaphoresis, fever, malaise, weakness, unexplained weight loss. Cardiovascular: Denies: chest pain, edema, orthopena, palpitations, peripheral edema, syncope. Respiratory: Denies: cough, hemoptysis, orthopnea, short of breath, sputum production, stridor, wheezing. Objective Last 24 Hrs of Vital Signs/I&O Vital Signs Date Time Temp Pulse Resp B/P Pulse O2 O2 Flow FiO2 Ox Delivery Rate 12/11 0838 98.1 109 15 143/84 95 Room Air 12/10 2333 98.1 60 18 142/98 92 Room Air 12/10 1727 110 154/92 12/10 1606 98 154/92 12/10 1604 98.4 98 18 154/92 92 12/10 1115 Room Air Room Air Intake & Output 12/11 1600 12/11 0800 12/11 0000 Intake Total 320 680 Output Total Balance 320 680 Intake, IV 20 20 Intake, Oral 300 660 Physical Exam General Appearance: Alert, Oriented X3, Cooperative, No Acute Distress Cardiovascular: Normal S1, Normal S2, irregularly irregular Lungs: Clear to Auscultation, Normal Air Movement Abdomen: Normal Bowel Sounds, Soft Extremities: No Edema Current Medications: Current Medications Sig/Magalys Start time Last Medication Dose Route Stop Time Status Admin Aspirin 81 MG DAILY 12/11 1000 AC 12/11 PO 1018 Atorvastatin Calcium 80 MG 1700 12/10 1700 AC 12/10 PO 1727 Clopidogrel Bisulfate 75 MG DAILY 12/09 1854 AC 12/11 PO 1018 Diltiazem HCl 60 MG Q6 12/11 1200 AC PO Diltiazem HCl 30 MG Q6 12/10 1345 DC 12/11 PO 0606 Diltiazem HCl 125 MG Q24H 12/10 1015 AC 12/11 Dextrose/Water 100 ML IV 1018 Heparin Sodium 5,000 UNIT Q8 12/09 2200 AC 12/11 (Porcine) SC 0606 Patient Medication 1 ED .[facility]-MED ONE 12/10 1140 [facility] ED 12/10 1141 Last 24 Hrs of Lab/[place] Results Last 24 Hrs of Labs/Mics: Laboratory Tests 12/11/16 0620: Anion Gap 7, Estimated GFR 60, BUN/Creatinine Ratio 17.5, Magnesium 1.9 Assessment/Plan Assessment: 71 year old gentleman with no past significant medical history, no follow up with a PCP since 7-8 years comes to ED for evaluation of visual disturbances. Found to be in rapid afib in ED, CT head showed acute right FINANCIAL PLANNING ASSISTANT territory infarction. Mild effacement of the posterior horn of the right lateral ventricle, likely secondary to underlying cerebral edema. Continues to have visual field defect. problem list: new onset afib FINANCIAL PLANNING ASSISTANT infarct homonymous hemianopsia to finger confrontation. plan: off cardiazem, heart rate between 90s-100s. on walking hr increases to 130-160s will increase PO cardiazem 60mg pq6, continue aspirin and plavix, spoke to Dr. Feliz, will start pt on metoprolol 25mg BID today. will f/up as outpt with neurology regarding anticoagulation 7-10 days echo shows borderline to mild concentric left ventricular hypertrophy. No obvious regional wall motion abnormalities. Normal left ventricular ejection fraction visually estimated at > 65%. , carotiddoppler shows no hemodynamically significant stenosis. cardiololgy and neurology on board, appreciate recomendation heart healthy diet dvt prophylaxis with sc hep full code. Problem List: 1. New onset a-fib 2. CVA (cerebral vascular accident) Pain Ratin Pain Location: na Pain Goal: Pain 4 or less Pain Plan: current regimen Tomorrow's Labs & Rationales: REDD Price MD 12/11/16 1154: Attending MD Review Statement Attending Statement Attending MD Statement: examined this patient, discuss w/resident/PA/HAND EMBROIDERER, agreed w/resident/PA/HAND EMBROIDERER, reviewed EMR data (avail) Attending Assessment/Plan: 71M no PMH admitted with rapid atrial fibrillation and acute onset left hemianopsia in the setting of acute FINANCIAL PLANNING ASSISTANT stroke. Patient has been on Cardizem drip being titrate down but remains in rapid a-fib. Patient feels well and has no complaints. His vision is slowly improving. He denies chest pain or palpitations. Neuro exam is grossly normal, aside from left visual field defect. 1. Acute right FINANCIAL PLANNING ASSISTANT stroke 2. Left homonymous hemianopsia 3. Rapid atrial fibrillation Plan - Continue on telemetry - Increase PO Cardiem to 60mg q6h - Titrate down Cardizem drip - Continue ASA, Plavix, statin - Once rate is controlled patient can be discharged home, will follow up with cardiology where he will start anti-thrombotic therapy in 7-10 days
[2016-12-11] MEDS ORDERED: PLAVIX75 M1 PO (13:05)
[2016-12-11] MEDS ORDERED: ATORVASTATIN CA80 M1 PO (13:05)
--- NOTE | 2016-12-11 13:08 | Patient Discharge Instructions ---
Discharge Instructions General Discharge Information You were seen/treated for: STROKE NEW ONSET ATRIAL FIBRILLATION Watch for these problems: sudden onset vision changes numbness/weakness of limbs Special Instructions: please follow up with your Primary care physician within one week of discharge. please follow up with your precision filer hand within one week of discharge please follow up with your neurologist within one week of discharge. Diet Recommended Diet: Heart Healthy Acute Coronary Syndrome Inclusion Criteria At DC or during hospital stay patient has or had the following: ACS DIAGNOSIS No Discharge Core Measures Meds if any: Prescribed or Continued at Discharge Meds if any: NOT Prescribed or Continued at Discharge Congestive Heart Failure Inclusion Criteria At DC or during hospital stay patient has or had the following: CHF DIAGNOSIS No Discharge Core Measures Meds if any: Prescribed or Continued at Discharge Meds if any: NOT Prescribed or Continued at Discharge Cerebrovascular accident Inclusion Criteria At DC or during hospital stay patient has or had the following: CVA/TIA Diagnosis Yes Discharge Core Measures Meds if any: Prescribed or Continued at Discharge Antithrombotic Yes Statin (required if LDL =>70) Yes Anticoagulant No Meds if any: NOT Prescribed or Continued at Discharge No Anticoagulant d/t Medical Contraindication Venous thromboembolism Inclusion Criteria VTE Diagnosis No VTE Type NONE VTE Confirmed by (Test) NONE Discharge Core Measures - Per Current guidelines, there needs to be overlap - treatment for the first 5 days of Warfarin therapy. - If discharged on Warfarin prior to 5 days of - overlap therapy, the patient will need to be - assessed for post discharge needs including - *Post discharge parental anticoagulation - *Warfarin and/or parental anticoagulation education - *Follow up date to check INR post discharge At least 5 days overlap therapy as Inpatient No Meds if any: Prescribed or Continued at Discharge Note: Overlap Therapy is Warfarin and Anticoagulant Meds if any: NOT Prescribed or Continued at Discharge
[2016-12-11 16:28] VITALS: BP 143/91
--- NOTE | 2016-12-11 18:59 | PN- Cardiology ---
Subjective Subjective: No complaints, but remains in atrial fibrillation. His ventricular response rates are typically in the 80 beat per minute range at rest but increase to the 130-140 beat per minute range with ambulation. Objective Vital Signs and I&Os Vital Signs Date Time Temp Pulse Resp B/P Pulse O2 O2 Flow FiO2 Ox Delivery Rate 12/11 1650 96 143/91 12/11 1650 95 143/91 12/11 1628 99.0 92 16 143/91 99 Room Air 12/11 1205 130 138/70 12/11 0838 98.1 109 15 143/84 95 Room Air 12/10 2333 98.1 60 18 142/98 92 Room Air Intake & Output 12/11 1600 12/11 0800 12/11 0000 12/10 1600 12/10 0800 12/10 0000 Intake Total 740 320 680 525 270 250 Output Total Balance 740 320 680 525 270 250 Intake, IV 20 20 20 45 30 10 Intake, Oral 720 300 660 480 240 240 Number 1 Bowel Movements Patient 198 lb Weight Physical Exam: Well-developed, well-nourished male in no acute distress. Vital signs: See above. Lungs: Clear to auscultation bilaterally. Heart: S1, S2 with no murmur, gallop, or rub appreciated. Extremities: No edema. Current Medications: Current Medications Sig/Magalys Start time Last Medication Dose Route Stop Time Status Admin Aspirin 81 MG DAILY 12/11 1000 AC 12/11 PO 1018 Atorvastatin Calcium 80 MG 1700 12/10 1700 AC 12/11 PO 1649 Clopidogrel Bisulfate 75 MG DAILY 12/09 1854 AC 12/11 PO 1018 Diltiazem HCl 60 MG Q6 12/11 1200 AC 12/11 PO 1650 Diltiazem HCl 30 MG Q6 12/10 1345 DC 12/11 PO 0606 Diltiazem HCl 125 MG Q24H 12/10 1015 DC 12/11 Dextrose/Water 100 ML IV 1018 Heparin Sodium 5,000 UNIT Q8 12/09 2200 AC 12/11 (Porcine) SC 1325 Metoprolol Tartrate 25 MG BID 12/11 1645 AC 12/11 PO 1650 Results Last 48 Hrs of Labs/Mics: Laboratory Tests 12/11/16 0620: Anion Gap 7, Estimated GFR 60, BUN/Creatinine Ratio 17.5, Magnesium 1.9 12/10/16 0630: Urine Opiates Screen < 100.00, Methadone Screen < 40, Barbiturate Screen < 60, Ur Phencyclidine Scrn < 6.00, Amphetamines Screen < 100, U Benzodiazepines Scrn < 85, Urine Cocaine Screen < 50, Urine Cannabis Screen < 5.00 12/10/16 0430: Magnesium 1.9, Troponin I 0.03 12/09/16 2215: Troponin I 0.03 Recent Imaging Studies: Carotid ultrasound (12/09/2016) No hemodynamically significant stenosis of the bilateral internal carotid arteries. Any stenosis is less than 50%. Echocardiogram (12/09/2016) Normal size left ventricle. Borderline to mild concentric left ventricular hypertrophy. No obvious regional wall motion abnormalities. Normal left ventricular ejection fraction visually estimated at >65%. Right ventricular dilatation. Mild right atrial size. Mild to moderate left atrial dilatation. Mild mitral regurgitation. Trace aortic regurgitation. Trace tricuspid regurgitation. Right ventricular systolic pressure estimated at 31mmHg. Mildly dilated ascending aorta. Dilated inferior vena cava. Assessment/Plan Assessment/Plan Mr. Ortega is an elderly male who has not seen a physician in many years and who presented with a left visual field defect c/w left homonymous hemianopsia and was discovered to be in atrial fibrillation with a rapid ventricular response. He remains in atrial fibrillation with improved, but still rapid ventricular response rates with exertion and was switched from IV diltiazem to oral diltiazem 60 mg every 6 hours. If his ventricular response remains rapid with exertion would recommend adding a low-dose beta katerina to his medical regimen. Metoprolol tartrate 25 mg twice daily would be reasonable. 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 As there is the potential for hemorrhagic transformation of his ischemic stroke if he were placed on anticoagulation at this time, the timing of full anticoagulation was discussed with neurology who feel that this should be held off for 7-10 days and then started. In the meantime, dual antiplatelet therapy is recommended. Recommendations: * Continue on telemetry. * Ambulate and at the ventricular response rate to His atrial fibrillation remains rapid i.e. rates in the 130-140/m range with strolling in the hallway would add metoprolol titrate 25 mg twice daily to his regimen. * Continue dual antiplatelet therapy (ASA, clopidogrel). * Continue statin therapy. * Anticipate that he will be started on a full anticoagulation in 7-10 days and would recommend one of the newer factor Xa inhibitors such as Eliquis (apixaban) or Xarelto (rivaroxaban). * Continue DVT prophylaxis. Continue telemetry? Yes
[2016-12-11 23:00] VITALS: BP 128/86
[2016-12-12 07:51] VITALS: BP 130/80
--- NOTE | 2016-12-12 09:20 | PN- Housestaff ---
MAGED CHIRINOSSEMAJPawan 12/12/16 0920: Subjective Follow-up For: INSTRUMENT MAKER infarct New onset Tammy luevano Tele-Events Since Last Visit: Tammy luevano, heart rate 83-113, heart rate went up to 150s and he was in the bathroom 130s on ambulation Subjective: Seen and examined patient offers no complaints. Denies chest pain, palpitations , shortness of breath Review of Systems Constitutional: Denies: chills, diaphoresis, fever, malaise, weakness, unexplained weight loss. Cardiovascular: Denies: chest pain, edema, orthopena, palpitations, peripheral edema, syncope. Respiratory: Denies: cough, hemoptysis, orthopnea, short of breath, sputum production, stridor, wheezing. Objective Last 24 Hrs of Vital Signs/I&O Vital Signs Date Time Temp Pulse Resp B/P Pulse O2 O2 Flow FiO2 Ox Delivery Rate 12/12 1543 98.3 86 16 124/72 94 Room Air 12/12 1226 102 144/78 12/12 1226 102 144/78 12/12 1015 104 120/82 12/12 0751 98.6 98 16 130/80 95 Room Air 12/12 0649 114 128/70 12/11 2302 93 128/86 12/11 2300 97.8 93 20 128/86 97 Room Air 12/11 1650 96 143/91 12/11 1650 95 143/91 12/11 1628 99.0 92 16 143/91 99 Room Air Intake & Output 12/12 1600 12/12 0800 12/12 0000 Intake Total 700 240 480 Output Total Balance 700 240 480 Intake, IV 200 Intake, Oral 500 240 480 Number 1 Bowel Movements Physical Exam General Appearance: Alert, Oriented X3, Cooperative, No Acute Distress Cardiovascular: Normal S1, Normal S2, irregularly irregular Lungs: Clear to Auscultation, Normal Air Movement Extremities: No Edema Current Medications: Current Medications Sig/Magalys Start time Last Medication Dose Route Stop Time Status Admin Aspirin 81 MG DAILY 12/11 1000 AC 12/12 PO 1015 Atorvastatin Calcium 80 MG 1700 12/10 1700 AC 12/11 PO 1649 Clopidogrel Bisulfate 75 MG DAILY 12/09 1854 AC 12/12 PO 1015 Diltiazem HCl 60 MG Q6 12/11 1200 AC 12/12 PO 1226 Heparin Sodium 5,000 UNIT Q8 12/09 2200 AC 12/11 (Porcine) SC 2302 Metoprolol Tartrate 50 MG DAILY 12/13 1000 AC PO Metoprolol Tartrate 25 MG AT BEDTIME 12/12 2200 AC PO Metoprolol Tartrate 25 MG ONCE ONE 12/12 1200 DC 12/12 PO 12/12 1201 1226 Metoprolol Tartrate 25 MG BID 12/11 1645 DC 12/12 PO 1015 Sodium Chloride 1,000 ML .Q10H 12/12 1145 AC 12/12 IV 12/12 2144 1227 Last 24 Hrs of Lab/[place] Results Last 24 Hrs of Labs/Mics: Laboratory Tests 12/12/16 0710: Anion Gap 11, Estimated GFR 46 L, BUN/Creatinine Ratio 16.0, Magnesium 2.0 Assessment/Plan Assessment: 71 year old gentleman with no past significant medical history, no follow up with a PCP since 7-8 years comes to ED for evaluation of visual disturbances. Found to be in rapid afib in ED, CT head showed acute right INSTRUMENT MAKER territory infarction. Mild effacement of the posterior horn of the right lateral ventricle, likely secondary to underlying cerebral edema. Creatinine 1.5 today BUN 24 problem list: new onset afib INSTRUMENT MAKER infarct: homonymous hemianopsia to finger confrontation. BERNARDA plan: off cardiazem drip, heart rate continues to be uncontrolled on ambulation, spoke to Dr. Villela will continue PO cardiazem 60mg pq6, increase morning dose of metoprolol to 50mg and metoprolol 25mg for the evening dose. will f/up as outpt with neurology regarding anticoagulation 7-10 days,continue aspirin and plavix, echo shows borderline to mild concentric left ventricular hypertrophy. No obvious regional wall motion abnormalities. Normal left ventricular ejection fraction visually estimated at > 65%. , carotiddoppler shows no hemodynamically significant stenosis. cardiololgy and neurology on board, appreciate recomendation Creatinine/bun trending up, known etiology at this time, will give IV hydration 1 L of half-normal saline at 100 mL and follow-up tomorrow heart healthy diet dvt prophylaxis with sc hep full code. Problem List: 1. CVA (cerebral vascular accident) 2. New onset a-fib Pain Ratin Pain Location: na Pain Goal: Pain 4 or less Pain Plan: current regimen Tomorrow's Labs & Rationales: JERZY RAMIREZ MD,NOAH 12/12/16 1128: Attending MD Review Statement Attending Statement Attending MD Statement: examined this patient, discuss w/resident/PA/GAS WORKER, agreed w/resident/PA/GAS WORKER, reviewed EMR data (avail), discussed with nursing, amended to note Attending Assessment/Plan: Patient seen and examined. Resting comfortably and not in any distress. No issues overnight. Carotid appeared better controlled with the addition of beta katerina therapy to his regimen yesterday. He denies any chest pain or shortness of breath. Denies any palpitations. On examination lungs are clear bilaterally. Heart sounds are regular with controlled rate. He has no peripheral edema. After ambulating today if his heart rate increased into the 150s. This is despite adding metoprolol to his Cardizem regimen. Unfortunately he is not adequately rate controlled at present. His creatinine level is also trending up. It is up to 1.5 from 1.1 yesterday. Recommendations: -Hydrate with half normal saline at 100 mL an hour for 1 L. Repeat serum chemistry in the morning. -Follow-up with the cardiology service regarding further optimize rate control. He may benefit from increasing the dose of his metoprolol to 50 mg as long as his blood pressure allows. -Continue dual antiplatelet therapy. He will receive full dose anticoagulation therapy as an outpatient once the risk for hemorrhagic conversion has reduced.
[2016-12-12] MEDS ORDERED: METOPROLOL TART50 M1 PO (15:41)
[2016-12-12] MEDS ORDERED: METOPROLOL TART25 M1 PO (15:41)
[2016-12-12 15:43] VITALS: BP 124/72
[2016-12-12 22:00] VITALS: BP 140/90
[2016-12-13 07:41] VITALS: BP 142/82
[2016-12-13 10:34] VITALS: BP 142/82
--- NOTE | 2016-12-13 11:26 | PN- Att Addend ---
Attending Addendum Attending Brief Note Patient seen and examined. Resting comfortably and not in any acute distress. Denies chest pain or shortness of breath. Denies palpitation. Medication regimen was adjusted yesterday by the cardiology service with increase of her metoprolol to 50 mg in the morning. Last night he was tachycardic up to the 150s when ambulating to bathroom. This morning however he appears to be doing better. Nursing staff reports that he has been ambulating around the unit with heart rate going up into the 90s. His renal function has improved with hydration overnight. Creatinine has come down to 1.2 today. He is medically stable to be discharged home today with regimen as recommended by the cardiology service.
[2016-12-13] MEDS ORDERED: ATORVASTATIN CA80 M1 PO (13:23)
[2016-12-13] MEDS ORDERED: CARDIZEM CD240 M1 PO (13:23)
[2016-12-13] MEDS ORDERED: PLAVIX75 M1 PO (13:23)
--- NOTE | 2016-12-15 09:14 | Discharge Summary ---
Visit Information Visit Dates Admission Date: 12/09/16 Discharge Date: 12/13/16 Hospital Course Course Attending Physician: REDD CEJA MD Primary Care Physician: SHI LOZANO MD Hospital Course: 71 year old gentleman with no past significant medical history and no follow up with a PCP since the past 7-8 years admitted to [facility] for evaluation of visual disturbances. Reported he had intermittent "flashes" the night prior to admission. The next morning around 9am while he was driving he experienced loss of vision of left lateral aspect of his visual field in left eye. This lasted for a few seconds and he continued to drive home. He visited his eye doctor who told him to go to a doctor as he might have had a TIA based on his eye findings. On interview denied chest discomfort, palpitations, shortness of breath, orthopnea, paroxysmal nocturnal dyspnea, dry cough, lower extremity edema, syncope, near syncope, lightheadedness, dizziness, double vision, headaches, tingling, numbness, weakness. Found to be in rapid afib in ED Vitals on admissions: Afebrile, Heart rate 179,blood pressure 151 /99, saturating well on room air Labs were unremarkable He was admitted to the telemetry floor and the following issues were addressed: New onset atrial fibrillation: Cardiology was consulted, was started on IV Cardizem drip which was titrated according to his heart rate and was later transitioned to by mouth Cardizem. His heart rate remained in the 100s and he was started on metoprolol. Echo showed borderline to mild concentric left ventricular hypertrophy. No obvious regional wall motion abnormalities. Normal left ventricular ejection fraction visually estimated at > 65%. ALL SOURCE ANALYST infarct: During his stay he continued have homonymous hemianopsia and no other neurological deficts were observed. Neurology was consulted and he was started on aspirin, plavix and statin. Although it is ideal to wait 2 weeks prior to beginning warfarin or a NOAC neurology felt as his stroke is relatively minor and there is a reasonable fear of recurrent embolization, they recommended his anticoagulation started sooner in 7-[address] head showed acute right ALL SOURCE ANALYST territory infarction. Mild effacement of the posterior horn of the right lateral ventricle, likely secondary to underlying cerebral edema. Carotid doppler shows no hemodynamically significant stenosis. BERNARDA: His Creatinine bumped up to 1.5 on day three which improved with IV hydration. Complications: none Allergies: Coded Allergies: No Known Allergies (12/09/16) Significant Procedures: SERVICE DATE: 12/09/16 EXAM TYPE: RAD - XRY-PORTABLE CHEST XRAY FINDINGS: Lungs are symmetrically expanded and clear. Cardiac silhouette is top normal in size. No cephalization of pulmonary venous flow, interstitial edema, focal consolidation or pleural effusion. Aortic arch is slightly uncoiled. Bones subjectively appear diffusely osteopenic. 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 IMPRESSION: No acute cardiopulmonary pathology. SERVICE DATE: 12/09/16150 EXAM TYPE: CAT - CT HEAD WO IV CONTRAST FINDINGS: Noncontrast CT imaging of the brain is notable for a focal region of hypoattenuation within the right paramedian occipital lobe, suspicious for acute right ALL SOURCE ANALYST territory infarction. Of note, there is mild effacement of the posterior horn of the right lateral ventricle, likely secondary to underlying edema within this region. The remaining ventricles are normal in size. A focal region of hypoattenuation is also visualized within the deep cortical white matter of the left parietal lobe. This latter region of hypoattenuation is nonspecific but could reflect age-indeterminate small vessel ischemia. There is no acute intracranial hemorrhage, mass or mass effect or abnormal extra-axial fluid collections. The density within the dural venous sinuses is within normal limits. The basilar cisterns are patent. No acute calvarial abnormality is identified. There is minimal opacification of a left anterior ethmoid air cell. The remaining imaged paranasal sinuses and mastoid air cells are well aerated. IMPRESSION: A focal region of hypoattenuation within the right paramedian occipital lobe, suspicious for acute right ALL SOURCE ANALYST territory infarction. Mild effacement of the posterior horn of the right lateral ventricle, likely secondary to underlying cerebral edema. The remaining ventricles are normal in size, without hydrocephalus. SERVICE DATE: 12/09/16 EXAM TYPE: CARD - ECHOCARDIOGRAM Left Ventricle Normal size left ventricle. Borderline to mild concentric left ventricular hypertrophy. No obvious regional wall motion abnormalities. Normal left ventricular ejection fraction visually estimated at >65%. Right Ventricle Right ventricular dilatation. Right Atrium Mild right atrial size. Left Atrium Mild to moderate left atrial dilatation. Mitral Valve Mild to moderate mitral annular calcification. Mitral valve mildly thickened. Mild mitral regurgitation. Aortic Valve Mild aortic sclerosis. No aortic stenosis. Trace aortic regurgitation. Tricuspid Valve Structurally normal tricuspid valve. Trace tricuspid regurgitation. Right ventricular systolic pressure estimated at 31mmHg. Pulmonic Valve Pulmonic valve not well visualized. No pulmonic regurgitation. Pericardium No pericardial effusion. Great Vessels Normal size aortic root. Mildly dilated ascending aorta. Dilated inferior vena cava. CONCLUSIONS Normal size left ventricle. Borderline to mild concentric left ventricular hypertrophy. No obvious regional wall motion abnormalities. Normal left ventricular ejection fraction visually estimated at > 65%. Right ventricular dilatation. Mild right atrial size. Mild to moderate left atrial dilatation. Mild mitral regurgitation. Trace aortic regurgitation. Trace tricuspid regurgitation. Right ventricular systolic pressure estimated at 31mmHg. Mildly dilated ascending aorta. Dilated inferior vena cava. SERVICE DATE: 12/09/16- EXAM TYPE: US - [id number] DOPPLER FINDINGS: RIGHT CAROTID SYSTEM: There is minimal echogenic plaque within the right common carotid artery, notably in the region of the carotid bulb. Peak systolic velocities and end diastolic velocities of the right vessels are as follows: Distal CCA: PSV 65 cm/s, EDV 10 cm/s Proximal ICA: PSV 79 cm/s, EDV 24 cm/s Mid ICA: 84 cm/s, EDV 28 cm/s Distal ICA: 95 cm/s, EDV 30 cm/s ECA: PSV 92 cm/s, EDV 19 cm/s Right vertebral artery: Antegrade flow is identified within the right vertebral artery. LEFT CAROTID SYSTEM: Minimal echogenic plaque within the left common carotid artery. Peak systolic velocities and end diastolic velocities of the left vessels are as follows: Distal CCA: PSV 79 cm/s, EDV 16 cm/s Proximal ICA: PSV 69 cm/s, EDV 17 cm/s Mid ICA: 99 cm/s, EDV 35 cm/s Distal ICA: 123 cm/s, EDV 35 cm/s ECA: PSV 120 cm/s, EDV 13 cm/s Left vertebral artery: Antegrade flow within the left vertebral artery. IMPRESSION: No hemodynamically significant stenosis of the bilateral internal carotid arteries. Any stenosis is less than 50%. Disposition Summary Disposition Principal Diagnosis: CVA Additional Diagnosis: New onset atrial fibrillation BERNARDA Discharge Disposition: home or self care Discharge Instructions General Discharge Information Code Status: Full Code Patient's Diet: Heart healthy Patient's Activity: As tolerated Follow-Up Instructions/Appts: follow up with Primary care physician within one week of discharge. follow up with retail cosmetics sales beauty advisor within one week of discharge follow up with neurologist within one week of discharge. Medications at Discharge Discharge Medications: Continue taking these medications: Aspirin (Ecotrin*) 81 MG TABLET.DR 1 Tablet ORAL DAILY Comments: Last Taken:12/13/16 Time:1000 Start taking the following new medications: Clopidogrel Bisulfate (Plavix) 75 MG TABLET 75 Milligram ORAL DAILY Qty = 30 No Refills Instructions: Please follow up with neurology Comments: Last Taken:12/13/16 Time:1000 Atorvastatin Calcium (Atorvastatin Calcium) 80 MG TABLET 80 Milligram ORAL 5 PM Qty = 30 No Refills Instructions: please follow up with neurology Comments: Last Taken:12/13/16 Time:5:00 pm Metoprolol Tartrate (Metoprolol Tartrate) 25 MG TABLET 1 Tablet ORAL AT BEDTIME Qty = 30 No Refills Comments: Last Taken:12/12/16 Time:2100 Metoprolol Tartrate (Metoprolol Tartrate) 50 MG TABLET 1 Tablet ORAL DAILY Qty = 30 No Refills Instructions: take in the morning Comments: Last Taken:12/13/16 Time:1000 Diltiazem HCl (Cardizem Cd) 240 MG CAP.ER.24H 1 Capsule ORAL DAILY Qty = 30 No Refills Instructions: Please follow up with cardiology Comments: new medication Copies To: MARTA PARNELL,SHI Land Attending MD Review Statement Documenting Attending: NOAH RAMIREZ M.D Other Findings: Patient is medically stable to be discharged.
== END 2016-12-13 14:45 | DRG 64 ==
LOC: ENRESERVTM → ENRESERVDT → ERH 14:59 → ENPENDDIS 17:12 → ERHI 17:12 → 1NO 17:12
PROVIDERS: Emergency Medicine; ADMIT Hospitalist
DX: I63.20 Cerebral infarction due to unspecified occlusion or stenosis of unspecified precerebral arteries (principal); G93.6 Cerebral edema; H53.8 Other visual disturbances; I48.91 Unspecified atrial fibrillation; Z79.01 Long term (current) use of anticoagulants; Z87.891 Personal history of nicotine dependence
CPT/HCPCS: 1NSP; 36415; 80307; 82436; 82950; 93005; 93010; 93306; 96374; 96375; 97116-GO; 97161-GP; 97165-GO; 97530-GO; 99291; J1644; J3490